=== PATIENT | male | born 1945 | race Hispanic/Latino ===

== ENCOUNTER 2016-12-22 15:50 | Emergency (ER) | payer OTHER ==
[~2016-12-22] VITALS: Ht 170.2 cm; Wt 81.6 kg
[~2016-12-22 15:50] MED LIST: AUGMENTIN 875875 MG PO; BENAZEPRIL HYDR10 MG PO; CIPROFLOXACIN500 MG PO; ECOTRIN81 MG PO; PRAVASTATIN SOD40 MG PO; TAMSULOSIN HYD0.4 MG PO
--- NOTE | 2016-12-22 16:48 | ED GI/GU/ABDOMINAL COMPLAINT ---
History of Present Illness General Chief Complaint: Abdominal Pain/Flank Pain Stated Complaint: ABD PAIN Source: patient, family, old records Exam Limitations: no limitations Vital Signs & Intake/Output Vital Signs & Intake/Output Vital Signs Date Time Temp Pulse Resp B/P Pulse O2 O2 Flow FiO2 Ox Delivery Rate 12/22 1809 99.9 81 18 132/78 98 Room Air 12/22 1603 98.4 85 18 155/79 95 Room Air Allergies Coded Allergies: NO KNOWN ALLERGIES (12/22/16) Reconcile Medications Amoxicillin/Clavulanate Potass (Amox-Clav 875-125 MG Tablet) 875 MG-125 MG TABLET 875 MG PO Q12 INFECTION Amoxicillin/Clavulanate Potass (Amox-Clav 875-125 MG Tablet) 875 MG-125 MG TABLET 1 TAB PO BID ANTIBIOTIC Aspirin (Ecotrin) 81 MG ECT 1 TAB PO DAILY BLOOD THINNER (Reported) Benazepril Hydrochloride 10 MG TAB 10 MG PO DAILY HYPERTENSION (Reported) Ciprofloxacin HCl (Cipro) 500 MG TABLET 1 TAB PO BID diverticulitis Metronidazole 500 MG TABLET 1 TAB PO TID diverticulitis Pravastatin Sodium 40 MG TABLET 40 MG PO QHS HYPERLIPIDEMIA (Reported) TAMSULOSIN HCL (Tamsulosin Hydrochloride) 0.4 MG CAP.ER.24H 0.4 MG PO DAILY ENLARGED PROSTATE (Reported) Triage Note: PT TO ER C/C LOWER ABD PAIN X 3 DAYS, WORSE WITH COUGH. DENIES N/V/D. DENIES URINARY S/S. AFEBRILE. STATES PAIN IS SIMILAR TO THE PAIN HE HAD WHEN HE HAD DIVERTICULITIS Triage Nurses Notes Reviewed? yes HPI: Patient is a 71-year-old male presents complaining of lower abdominal pain. Abdominal pain present for the past 4 days, waxing and waning currently 4 out of 10. Pain feels similar to previous episode of diverticulitis. No exacerbating or alleviating factors. Patient denies fevers, chills, nausea, vomiting, diarrhea, urinary symptoms. (SKYLER LAW,FAVIAN) Past History Travel History Traveled to [place] past 21 day No Medical History Any Pertinent Medical History? see below for history Cardiovascular: hypertension, hyperlipidemia Gastrointestinal: diverticulitis History of MRSA: No History of VRE: No History of CDIFF: No Pneumonia Vaccine: 10/03/12 Surgical History Surgical History: cholecystectomy Psychosocial History Who do you live with Family Services at Home None What is your primary language Welsh Tobacco Use: Current Daily Use Daily Tobacco Use Amount/Type: => 5 Cigarettes daily Family History Hx Contributory? No (FAVIAN OROZCO) Review of Systems Review of Systems Constitutional: Denies: chills, fever. EENTM: Reports: no symptoms. Respiratory: Denies: cough, short of breath. Cardiovascular: Denies: chest pain. GI: Reports: see HPI. Genitourinary: Reports: no symptoms. Musculoskeletal: Denies: back pain. Skin: Reports: no symptoms. Neurological/Psychological: Reports: no symptoms. Hematologic/Endocrine: Reports: no symptoms. Immunologic/Allergic: Reports: no symptoms. (FAVIAN OROZCO) Physical Exam Physical Exam General Appearance: well developed/nourished, alert, awake Head: atraumatic, normal appearance Eyes: Bilateral: normal appearance, PERRL, EOMI. Ears, Nose, Throat, Mouth: hearing grossly normal, moist mucous membrane Neck: normal inspection, supple, full range of motion Respiratory: normal breath sounds, chest non-tender, no respiratory distress, lungs clear Cardiovascular: regular rate/rhythm Gastrointestinal: normal bowel sounds, soft, mild left lower quadrant and suprapubic tenderness. Back: normal inspection, normal range of motion, no vertebral tenderness, no CVA tenderness Extremities: normal range of motion Neurologic/Psych: no motor/sensory deficits, awake, alert, oriented x 3, normal gait, normal mood/affect Skin: intact, normal color, warm/dry Core Measures ACS in differential dx? No Severe Sepsis Present: No Septic Shock Present: No (FAVIAN OROZCO) Progress Differential Diagnosis: diverticulitis, bowel junction, bowel perforation, intra -abdominal abscess Plan of Care: Orders Procedure Date/time Status LACTIC ACID 12/22 1953 Active URINALYSIS 12/22 1653 Complete LACTIC ACID 12/22 1653 Complete COMPREHENSIVE METABOLIC PANEL 12/22 1653 Complete CBC WITHOUT DIFFERENTIAL 12/22 1653 Complete Laboratory Tests 12/22/16 1707: Urine Color YEL, Urine Clarity CLEAR, Urine pH 6.0, Ur Specific [place] 1.020, Urine Protein NEG, Urine Ketones NEG, Urine Nitrite NEG, Urine Bilirubin NEG, Urine Urobilinogen 0.2, Ur Leukocyte Esterase NEG, Ur Microscopic EXAM NOT REQUIRED, Urine Hemoglobin NEG, Urine Glucose NEG 12/22/16 1703: Anion Gap 12, Estimated GFR > 60, BUN/Creatinine Ratio 18.8, Glucose 88, Lactic Acid 0.7, Calcium 8.8, Total Bilirubin 0.7, AST 19, ALT 30, Alkaline Phosphatase 113, Total Protein 6.9, Albumin 3.9, Globulin 3.0, Albumin/Globulin Ratio 1.3, CBC w Diff NO MAN DIFF REQ, RBC 4.51 L, MCV 95.8 H, MCH 31.7 H, RDW 13.6, MPV 9.1, Gran % 75.8 H, Lymphocytes % 13.0 L, Monocytes % 7.0, Eosinophils % 3.7, Basophils % 0.5, Absolute Granulocytes 12.0 H, Absolute Lymphocytes 2.0, Absolute Monocytes 1.1 H, Absolute Eosinophils 0.6, Absolute Basophils 0.1, PUBS MCHC 33.[address] Buchanan. 185: Patient reevaluated. Results of labs and CT scan discussed with the patient his family. Patient's abdomen reexamined, very mild suprapubic and left lower quadrant tenderness. No peritoneal signs on exam. Patient afebrile, nontoxic appearing, tolerating oral intake. Patient appears stable for discharge with close outpatient follow-up, discussed with the patient and his family signs and symptoms to monitor for internal return immediately if any fevers, increasing pain, vomiting, or worsening of symptoms. (SKYLER LAW,FAVIAN) Diagnostic Imaging: Viewed by Me: CT Scan. Discussed w/RAD: CT Scan. Radiology Impression: PATIENT: CHACHO LENZ PRESENT AGE : 71 PATIENT ACCOUNT NO: [id number] : 46 LOCATION: [facility] ORDERING PHYSICIAN: FAVIAN LAW SERVICE DATE: 12/22/16 EXAM TYPE: CAT - CT ABD & PELVIS W IV CONTRAST EXAMINATION: CT ABDOMEN AND PELVIS WITH CONTRAST CLINICAL INFORMATION: Lower abdominal pain and tenderness. COMPARISON: CT abdomen and pelvis with contrast 03/24/2014. TECHNIQUE: Multidetector volumetric imaging was performed of the abdomen and pelvis before and after the IV administration of 95 mL of Optiray 320 intravenous contrast. Sagittal and coronal reformatted images were obtained on the technologist's workstation. DLP: 376 mGy-cm. FINDINGS: LUNG BASES: Evaluation of the included lung bases is again notable for a large left-sided Bochdalek hernia containing intraperitoneal fat. No pleural or pericardial effusions are identified. LIVER, GALLBLADDER, AND BILIARY TREE: The liver is normal in size, shape, and attenuation. No enhancing liver lesions are identified. The gallbladder is surgically absent. There is mild prominence of the common bile duct which is visualized measuring up to 1.2 cm in diameter. Mild prominence of the biliary tree is not unexpected following cholecystectomy. There are no visible radiopaque intraductal stones. PANCREAS: Unremarkable. SPLEEN: Unremarkable. ADRENAL GLANDS: Unremarkable. KIDNEYS AND URETERS: Evaluation of the bilateral kidneys and renal collecting systems is notable for bilateral simple renal cortical cysts, visualized measuring up to 2.3 cm along the lower pole of the left kidney. No renal or ureteral stones are identified and there is no hydroureteronephrosis of either kidney or renal collecting system. BLADDER: Under distended urinary bladder. Mild circumferential bladder wall thickening. GASTROINTESTINAL TRACT: Evaluation of the gastrointestinal system is notable for scattered colonic diverticulosis, most significant along the sigmoid colon. Of note, there is circumferential thickening and diffuse pericolonic inflammatory changes surrounding a short segment of the sigmoid colon, spanning approximately 5 cm in length within the central pelvis. Primary diagnostic consideration is for an acute sigmoid diverticulitis. No extraluminal foci of air to suggest perforation. No pericolonic fluid collections. Of note, this inflamed segment of sigmoid colon is visualized immediately posterior to the urinary bladder. Thus circumferential thickening of the urinary bladder may represent secondary reactive inflammatory changes given adjacent sigmoid diverticulitis. ABDOMINAL WALL: Moderate fat- containing left inguinal hernia. LYMPH NODES: No significant abdominal or pelvic adenopathy. VASCULAR: Patent abdominal vasculature. Normal course and caliber of the abdominal aorta and its branching vessels, without aneurysmal dilatation. Scattered atherosclerosis of the abdominal aorta and its branching vessels, without aneurysmal dilatation. PELVIC VISCERA: Unremarkable. OSSEOUS STRUCTURES: No acute osseous abnormality. Normal alignment of the imaged thoracolumbar spine. Moderate multilevel facet arthrosis. IMPRESSION: Scattered colonic diverticulosis, most significant along the sigmoid colon. Circumferential thickening and diffuse pericolonic inflammatory changes surrounding a short segment of the sigmoid colon, spanning approximately 5 cm in length within the central pelvis. Primary diagnostic consideration is for an acute sigmoid diverticulitis. No extraluminal foci of air to suggest perforation. No pericolonic fluid collections. Of note, this inflamed segment of sigmoid colon is visualized immediately posterior to the urinary bladder. Mild circumferential bladder wall thickening may represent secondary reactive inflammatory changes given adjacent sigmoid diverticulitis. Correlate for dysuria. DICTATED BY: THOMAS CHAVEZ MD DATE/TIME DICTATED:12/22/161824 TREAD BOOKER:TREVOR DATE/TIME TRANSCRIBED:12/22/161824 CONFIDENTIAL, DO NOT COPY WITHOUT APPROPRIATE AUTHORIZATION. <Electronically signed in Other Vendor System> SIGNED BY: THOMAS CHAVEZ MD 12/22/16 184 Initial ED EKG: none (FAVIAN OROZCO) Departure Departure Time of Disposition: 1855 Disposition: HOME OR SELF CARE Condition: Stable Clinical Impression Primary Impression: Diverticulitis Qualifiers: Diverticulitis site: large intestine Diverticulitis bleeding: without bleeding Diverticulitis complication: without perforation or abscess Qualified Code: K57.32 - Diverticulitis of large intestine without perforation or abscess without bleeding Referrals: DRU LAU,DANTE Munguia (PCP/Family) Additional Instructions: Follow-up with your primary doctor within 2-3 days for recheck and further evaluation. Call tomorrow morning for appointment. Clear liquid diet for the first 24-48 hours then slowly advance her diet as tolerated. Return to the emergency department immediately if fevers, vomiting, increasing pain, or worsening of symptoms. Departure Forms: Customer Survey General Discharge Information Prescriptions: Current Visit Scripts Ciprofloxacin HCl (Cipro) 1 TAB PO BID #20 TAB Metronidazole 1 TAB PO TID #30 TAB (FAVIAN OROZCO) PA/STRADDLE BUG OPERATOR Co-Sign Statement Statement: ED Attending supervision documentation- x I saw and evaluated the patient. I have also reviewed all the pertinent lab results and diagnostic results. I agree with the findings and the plan of care as documented in the PA's/STRADDLE BUG OPERATOR's documentation. [] I have reviewed the ED Record and agree with the PA's/STRADDLE BUG OPERATOR's documentation. [] Additions or exceptions (if any) to the PAs/STRADDLE BUG OPERATOR's note and plan are summarized below: [] (LUX LAU,VINITA)
[2016-12-22 17:16] LABS: ABSOLUTE BASOPHIL COUNT 0.1 /CUMM (0.0-0.2); ABSOLUTE EOSINOPHIL COUNT 0.6 /CUMM (0.0-0.7); ABSOLUTE MONOCYTE COUNT 1.1 /CUMM (0.10-0.60); BASOPHIL % 0.5 % (0.0-2.0); EOSINOPHIL % 3.7 % (0-5); GRANULOCYTE % 75.8 % (42.2-75.2); HEMATOCRIT 43.2 % (42-52); MEAN CORPUSCULAR HGB 31.7 PG (27.0-31.0); MEAN CORPUSCULAR HGB CONC 33.1 G/DL (33.0-37.0); MEAN CORPUSCULAR VOLUME 95.8 FL (80.0-94.0); MEAN PLATELET VOLUME 9.1 FL (7.4-10.4); PLATELET COUNT 225 /CUMM (130-400); RBC DISTRIBUTION WIDTH 13.6 % (11.5-14.5); RED BLOOD CELL CT 4.51 /CUMM (4.70-6.10); WHITE BLOOD CELL COUNT 15.8 /CUMM (4.8-10.8)
[2016-12-22 18:09] VITALS: BP 132/78
--- NOTE | 2016-12-22 18:45 | CT SCAN REPORT ---
EXAMINATION: CT ABDOMEN AND PELVIS WITH CONTRAST CLINICAL INFORMATION: Lower abdominal pain and tenderness. COMPARISON: CT abdomen and pelvis with contrast 03/24/2014. TECHNIQUE: Multidetector volumetric imaging was performed of the abdomen and pelvis before and after the IV administration of 95 mL of Optiray 320 intravenous contrast. Sagittal and coronal reformatted images were obtained on the technologist's workstation. DLP: 376 mGy-cm. FINDINGS: LUNG BASES: Evaluation of the included lung bases is again notable for a large left-sided Bochdalek hernia containing intraperitoneal fat. No pleural or pericardial effusions are identified. LIVER, GALLBLADDER, AND BILIARY TREE: The liver is normal in size, shape, and attenuation. No enhancing liver lesions are identified. The gallbladder is surgically absent. There is mild prominence of the common bile duct which is visualized measuring up to 1.2 cm in diameter. Mild prominence of the biliary tree is not unexpected following cholecystectomy. There are no visible radiopaque intraductal stones. PANCREAS: Unremarkable. SPLEEN: Unremarkable. ADRENAL GLANDS: Unremarkable. KIDNEYS AND URETERS: Evaluation of the bilateral kidneys and renal collecting systems is notable for bilateral simple renal cortical cysts, visualized measuring up to 2.3 cm along the lower pole of the left kidney. No renal or ureteral stones are identified and there is no hydroureteronephrosis of either kidney or renal collecting system. BLADDER: Under distended urinary bladder. Mild circumferential bladder wall thickening. GASTROINTESTINAL TRACT: Evaluation of the gastrointestinal system is notable for scattered colonic diverticulosis, most significant along the sigmoid colon. Of note, there is circumferential thickening and diffuse pericolonic inflammatory changes surrounding a short segment of the sigmoid colon, spanning approximately 5 cm in length within the central pelvis. Primary diagnostic consideration is for an acute sigmoid diverticulitis. No extraluminal foci of air to suggest perforation. No pericolonic fluid collections. Of note, this inflamed segment of sigmoid colon is visualized immediately posterior to the urinary bladder. Thus circumferential thickening of the urinary bladder may represent secondary reactive inflammatory changes given adjacent sigmoid diverticulitis. ABDOMINAL WALL: Moderate fat-containing left inguinal hernia. LYMPH NODES: No significant abdominal or pelvic adenopathy. VASCULAR: Patent abdominal vasculature. Normal course and caliber of the abdominal aorta and its branching vessels, without aneurysmal dilatation. Scattered atherosclerosis of the abdominal aorta and its branching vessels, without aneurysmal dilatation. PELVIC VISCERA: Unremarkable. OSSEOUS STRUCTURES: No acute osseous abnormality. Normal alignment of the imaged thoracolumbar spine. Moderate multilevel facet arthrosis. IMPRESSION: Scattered colonic diverticulosis, most significant along the sigmoid colon. Circumferential thickening and diffuse pericolonic inflammatory changes surrounding a short segment of the sigmoid colon, spanning approximately 5 cm in length within the central pelvis. Primary diagnostic consideration is for an acute sigmoid diverticulitis. No extraluminal foci of air to suggest perforation. No pericolonic fluid collections. Of note, this inflamed segment of sigmoid colon is visualized immediately posterior to the urinary bladder. Mild circumferential bladder wall thickening may represent secondary reactive inflammatory changes given adjacent sigmoid diverticulitis. Correlate for dysuria.
[2016-12-22] MEDS ORDERED: METRONIDAZOLE500 M1 PO (18:58)
[2016-12-22] MEDS ORDERED: CIPRO500 M1 PO (18:58)
[2017-03-03] MEDS ORDERED: ATORVASTATIN CA40 M1 PO (15:11)
== END 2016-12-22 19:06 ==
LOC: ERH 15:50
PROVIDERS: Physician Assistant
DX: K57.92 Diverticulitis of intestine, part unspecified, without perforation or abscess without bleeding (principal)
CPT/HCPCS: 74177; 81003

== ENCOUNTER → 2017-03-07 | Day surgery (SDC) | payer OTHER ==
[~2017-03-07] VITALS: Ht 180.3 cm; Wt 79.4 kg
[~2017-03-07] MED LIST changes: +ATORVASTATIN CA40 M1 PO; +CIPRO500 M1 PO; +METRONIDAZOLE500 M1 PO
--- NOTE | 2017-03-07 18:01 | Operative Report ---
Operative/Inv Procedure Report Surgery Date: 03/07/17 Name of Procedure: Laparoscopic preperitoneal mesh repair of left inguinal hernia Pre-Operative Diagnosis: LIH Post-Operative Diagnosis: same, indirect Estimated Blood Loss: scant Surgeon/Chain Forming Machine Operator: STEPHANIE LAU,THANH Henriquez Anesthesia: general endotracheal tube Operative/Procedure Note Note: Patient was positioned supine on the table. After successful induction of general anesthesia the inguinal and surrounding areas were clipped prepped and draped in the usual sterile fashion. After injection of local anesthetic at the bottom of the umbilicus off the midline to the left which includes part of the previous incision, a 1 1/2 cm curved incision was made with a 15 blade, then deepened through Priti's fascia, sweeping off the rectus sheath. A horizontal 1-1/2 cm incision was made between the fibers, elevating these edges with 0 Vicryl stay sutures. Then retracting the muscle laterally, clearing off the posterior rectus sheath, this space is developed down the midline to the pubis sequentially, with an S retractor, a peanut dissector, then the balloon-camera device, inflating it 30-40 pumps while watching how it opens up the space, keeping the epigastrics up. The balloon is then replaced with a 10 mm Douglass trocar, inserted, shortened, and secured with the stay sutures, gas turned on to 12 not 15 mm. Then two 5 mm trochars are inserted in the midline just below the camera, spaced by approximately 3 cm. Using mostly blunt dissection with peanuts to define the anatomy, first Kendell's ligament is swept off medially, checking the medial spaces, direct and femoral. There were no hernias there. Then briefly skipping over the area of the iliac fat pad, we developed the iliopubic tract out laterally to the iliac crest. Then we returned to the area of the fat pad where the hernia sac and the cord structures are adherent, coursing up into an attenuated deep ring. The cord structures form a triangle with the vas approaching medially and the main vessels approaching laterally, with the apex at the deep ring. There was some preperitoneal fat up inside in front that was dragged down and out, helping identify the distal lip of the hernia sac, which is then carefully peeled off the cord structures, especially the vas. The cord is also from the underlying iliac fat. Once the hernia sac is from the cord structures down to the base of this "triangle," a Parietex sided mesh with the suture, is marked and stuffed down the camera trocar, then unfurled in a systematic fashion, first with the smaller leaflet passing behind the cord structures, until the flap covers the epigastrics, covering the deep ring, then the larger leaflet is released from the suture, double-covering the smaller one, but also extends laterally out to the iliac crest, medially over Kendell's ligament, and superiorly towards the camera. There is a third part of the mesh, that covers the iliac fat pad like a skirt. The mesh was adjusted back and forth so that the keyhole is centered around the cord , lays flat and the edges are not curling. A trial run of letting the gas escape a little bit to see how the mesh would lay as the peritoneum comes back down is done, then when we're satisfied, we let rest of the gas escape, pulling out the instruments and trochars. The fascia is closed with a [id number] 0 Vicryl suture, tying the stay sutures on top. Then we closed the 3 skin incisions with interrupted 4-0 Monocryl, 3 for the umbilical, one each for the smaller ones, followed by Mastisol, Steri-Strips and Band-Aids. Overall estimated blood loss was minimal, lap and sponge counts were correct, wound expectancy was clean, IV fluids crystalloid, complications none, patient tolerated the procedure well, did not significantly calvin during extubation and was returned to the recovery room in satisfactory condition.
== END ==
LOC: STS 02:07
DX: K40.90 Unilateral inguinal hernia, without obstruction or gangrene, not specified as recurrent (principal); F17.200 Nicotine dependence, unspecified, uncomplicated; E78.00 Pure hypercholesterolemia, unspecified
CPT/HCPCS: C1781; C9399; J0690; J2250